=== PATIENT | male | born 1990 | race Caucasian/White ===

== ENCOUNTER 2020-06-30 13:08 | Emergency (ER) | payer BC, SELFPAY ==
[2020-06-30 13:58] VITALS: BMI 44.1
[2020-06-30 14:00] VITALS: BP 154/93; PULSE 82; RESP 20; TEMP 36.8; O2SAT 98; BMI 44.1
--- NOTE | 2020-06-30 14:09 | HMH.EDUTC ---
[facility] [place] Clinical Impression: Viral syndrome Disposition: Home, Self-Care Condition on Discharge: Good Instructions: DI for Viral Syndrome, Preventing the Spread of Coronavirus Discharge Instructions Additional Instructions: Drink plenty of fluids. Take tylenol or ibuprofen for pain or fever. Take the medications as directed. Follow up with your regular doctor. GO TO THE ER FOR ANY WORSENING SYMPTOMS FOLLOW THE DIRECTIONS ON THE COVID-19 HAND OUT THAT WE GAVE YOU REGARDING SELF-ISOLATION UNTIL YOU KNOW YOUR COVID-19 RESULTS Prescriptions: Azithromycin [Z-Abraham 250mg Tab*] 250 mg PO UD DOSE PK #6 tab Transmission Status: Received by [id number] Referrals: PCP,No [Primary Care Provider] - Forms: Work/School Release Time of Disposition: 14:29 Medical Decision Making - Medical Records Medical records reviewed: No: I reviewed the patient's medical records. - Kush Inquiry Pt receiving controlled substance: No Vital Signs: 06/30/20 14:00 06/30/20 14:33 Temperature 98.2 F 98.2 F Temperature Source Oral Pulse Rate 82 Pulse Rate [Right Brachial] 82 Respiratory Rate 20 20 Blood Pressure 154/93 H Blood Pressure [Right Arm] 154/93 H Blood Pressure Mean [Right Arm] 113 Blood Pressure Source [Right Arm] Automatic Cuff Blood Pressure Position [Right Arm] Sitting 02 Sat by Pulse Oximetry 98 Oxygen Delivery Method Room Air - Lab Data Lab Results 06/30/20 13:59: Strep Scn Rapid Clinic Negative Orders (Tests/Meds): ORDERS Category Date Time Status Strep Screen Confirmation Stat Micro 06/30/20 13:59 Received [facility] [place] - General Stated complaint: COVID testing with symptoms Time Seen by Provider: 06/30/20 14:09 Mode of Arrival: Ambulatory Source of Information: Patient Limitations: No Limitations Description of Symptoms (Recalled from Triage Doc. by RN): PATIENT C/O HEADACHE, COUGH, SORE THROAT, FATIGUE, AND DECREASED SENSE OF SMELL SINCE TUESDAY HEENT Symptoms (Recalled from RN notes): Yes Resp Symptoms (Recalled from RN notes): Yes Skin Symptoms (Recalled from RN notes): No MS Symptoms (Recalled from RN notes): No Functional Status (Recalled from RN notes): WNL - History of Present Illness Provider Complaint: He c/o 3 days of body aches, feeling bad and having an altered sense of taste. He denies any known exposure to COVID-19, but he works at [employer] and he is around lots of coworkers. - Related Data Previous Rx's Medication Instructions Recorded oseltamivir 75 mg capsule 75 mg PO BID 5 Days #10 cap 12/15/19 Azithromycin [Z-Abraham 250mg Tab*] 250 mg PO UD DOSE PK #6 tab 06/30/20 Allergies Allergy/AdvReac Type Severity Reaction Status Date / Time No Known Allergies Allergy Verified 12/15/19 15:53 - Worker's Comp Is this a Worker's Comp case?: No [facility] History - Hepatitis A Screen Drug use history?: No High risk sexual behaviors?: No History of sexually transmitted infection?: No Currently employed?: No Childcare worker?: No Do you have indoor plumbing?: Yes Do you have electricity?: Yes Attestation statement:: This patient has been screened for Hepatitis A risk factors. I have reviewed the patient's past medical history: Yes Other Surgeries: Yes: No Previous Surgery - Social History Smoking Status: Never smoker Alcohol Intake: never Alcohol Intake Frequency:: holidays/special occasions only Occupational Status: other ROS Obtained: Yes All systems reviewed & no additional complaints - Constitutional Constitutional: Reports chills, Denies fever(s), Reports poor appetite, Reports malaise - Eyes Eyes: Denies eye discharge - ENT Ears, Nose, Mouth, and Throat: Reports as per HPI Physical Exam - General General appearance: alert, in no apparent distress - Head Head exam: atraumatic, normocephalic, normal inspection - Eye Eye exam: Present: normal appearance, PERRL, EOMI - ENT ENT exam: Present: nor
[2020-06-30 14:33] VITALS: BP 154/93; PULSE 82; RESP 20; TEMP 36.8; O2SAT 98
[2020-06-30 19:19] LABS: UTC Strep Screen (Rapid) Negative (Negative)
== END 2020-06-30 14:36 | disposition home or self-care (01) ==
PROVIDERS: Emergency Provider Nurse Practitioner Family
DX: Z20.828 Contact with and (suspected) exposure to other viral communicable diseases (principal); R05 Cough; R51 Headache
CPT/HCPCS: 87880; 99202; U0003

== ENCOUNTER 2020-07-02 14:46 | Emergency (ER) | payer BC, SELFPAY ==
[2020-07-02 14:47] VITALS: BP 135/89; PULSE 107; RESP 21; TEMP 36.9; O2SAT 100; BMI 43.5
--- NOTE | 2020-07-02 15:25 | HMH.EDUTC ---
[facility] [place] Disposition Clinical Impression: Sinusitis Qualifiers: Sinusitis location: unspecified location Chronicity: unspecified Qualified Code(s): J32.9 - Chronic sinusitis, unspecified Disposition: Home, Self-Care Condition on Discharge: Good Instructions: Sinusitis, Sinus Headache, DI for Sinusitis, Preventing the Spread of Coronavirus Discharge Instructions Additional Instructions: *Monitor Temp, Over the counter Motrin or Tylenol as directed/as needed Tylenol every 4 hours and Motrin every 6 hours (as long as your family doctor has told you that you can take it) for fever or pain. and straight to ER if unable to lower temp less than 101.0 after medication given *Warm salt water gargles may help to soothe the throat *Throat Lozenges *Warm fluids like tea with honey may help to soothe the throat *Sleep elevated *Humidifier/Vaporizer *Flonase 2 spray in each nostril daily to help with nasal congestion, sinus an ear pressure/inflammation Lots of Fluids Sleep elevated Humidifer/vaporizer You was tested for COVID and given a handout make sure that you follow those instructions carefull to keep from spreading COVID 19 Your throat swab was sent for culture. Those results are typically sent to your primary care. Be sure to follow up in 2-3 days with your family doctor/primary care physician if no improvement so they can review those result and treat if necessary. If you don?t have a primary care doctor, I recommend you get one but in the mean time, you will have to return to a walk in clinic Follow up IMMEDIATELY for new or worsening symptoms or no Noticeable improvement over the next 48-72 hours. 911 for difficulty breathing or swallowing Prescriptions: Fluticasone Propionate [Flonase 50mcg nasal spray 16gm] 1 - 2 spr NS DAILY #1 bottle Transmission Status: Pending to [id number] Referrals: PCP,No [Primary Care Provider] - As needed Forms: Work/School Release Time of Disposition: 15:34 Medical Decision Making - Kush Inquiry Pt receiving controlled substance: No Kush was queried for this patient: No Vital Signs: 07/02/20 14:47 Temperature 98.4 F Temperature Source Oral Pulse Rate [Right] 107 H Respiratory Rate 21 Blood Pressure [Right Arm] 135/89 Blood Pressure Mean [Right Arm] 104 02 Sat by Pulse Oximetry 100 - Lab Data Lab results reviewed: Yes: I reviewed the patient's lab results. Orders (Tests/Meds): ORDERS Category Date Time Status Coronavirus 19 Swab (OUTPT) Routine Lab 07/02/20 15:13 Received [facility] [place] HPI - General Stated complaint: AZUL, sore throat Time Seen by Provider: 07/02/20 15:25 Mode of Arrival: Ambulatory Limitations: No Limitations Description of Symptoms (Recalled from Triage Doc. by RN): States he was here tuesday for cough, fever, cogestion, sore throat and is back today because he is not any better. States he tested negative for covid and strep. HEENT Symptoms (Recalled from RN notes): Yes Resp Symptoms (Recalled from RN notes): Yes Skin Symptoms (Recalled from RN notes): No MS Symptoms (Recalled from RN notes): No Functional Status (Recalled from RN notes): na - History of Present Illness Provider Complaint: Patient states that he was seen in the clinic on Tuesday and was tested for COVID and strep and they was negative but he is still having sinus pressure and nasal congestion States that he has been taking his zpack but still having the pressure in his sinuses and they wouldnt let him return to work so he came back in to get rechecked - Related Data Previous Rx's Medication Instructions Recorded oseltamivir 75 mg capsule 75 mg PO BID 5 Days #10 cap 12/15/19 Azithromycin [Z-Abraham 250mg Tab*] 250 mg PO UD DOSE PK #6 tab 06/30/20 Fluticasone Propionate [Flonase 1 - 2 spr NS DAILY #1 bottle 07/02/20 50mcg nasal spray 16gm] Allergies Allergy/AdvReac Type Severity Reaction Status Date / Time No Known Allergies Allergy Verified 12/15/19 15:53 -
[2020-07-02 15:31] LABS: UTC Influenza A Antigen Negative (Negative); UTC Influenza B Antigen Negative (Negative)
[2020-07-02 15:43] VITALS: BP 125/65; PULSE 100; RESP 20; TEMP 37.2; O2SAT 100
[2020-07-02 19:15] LABS: UTC Strep Screen (Rapid) Negative (Negative)
== END 2020-07-02 15:43 | disposition home or self-care (01) ==
PROVIDERS: Emergency Provider Nurse Practitioner
DX: J32.9 Chronic sinusitis, unspecified (principal)
CPT/HCPCS: 87804; 87880; 96372; 99202; U0003

== ENCOUNTER 2020-12-06 18:02 | Emergency (ER) | payer BC, SELFPAY ==
[2020-12-06 18:10] VITALS: BP 121/85; PULSE 102; RESP 14; TEMP 36.8; O2SAT 97; BMI 43.5
--- NOTE | 2020-12-06 18:42 | HMH.EDUTC ---
[facility] [place]ression: Exposure to COVID-19 virus Disposition: Home, Self-Care Condition on Discharge: Good Instructions: DI for COVID-19 (Suspected or Confirmed ), Preventing the Spread of Coronavirus Discharge Instructions Additional Instructions: Drink plenty of fluids. Take tylenol for pain or fever. Return if you begin to have difficulty breathing. Follow up with your regular doctor. GO TO THE ER FOR ANY WORSENING SYMPTOMS Referrals: PCP,No [Primary Care Provider] - Time of Disposition: 19:02 Medical Decision Making - Medical Records Medical records reviewed: No: I reviewed the patient's medical records. - Kush Inquiry Pt receiving controlled substance: No Vital Signs: 12/06/20 18:10 12/06/20 19:01 Temperature 98.2 F 98.2 F Temperature Source Oral Pulse Rate 102 H Pulse Rate [Right Brachial] 102 H Respiratory Rate 14 14 Blood Pressure 121/85 Blood Pressure [Right Arm] 121/85 Blood Pressure Mean [Right Arm] 97 Blood Pressure Source [Right Arm] Automatic Cuff Blood Pressure Position [Right Arm] Sitting 02 Sat by Pulse Oximetry 97 Oxygen Delivery Method Room Air [facility] [place] - General Stated complaint: covid test Time Seen by Provider: 12/06/20 18:43 - History of Present Illness Provider Complaint: He is here to have a covid test. His has tested positive but never developed symptoms. He has never tested positive or developed symptoms. - Related Data Previous Rx's Medication Instructions Recorded oseltamivir 75 mg capsule 75 mg PO BID 5 Days #10 cap 12/15/19 Azithromycin [Z-Abraham 250mg Tab*] 250 mg PO UD DOSE PK #6 tab 06/30/20 Fluticasone Propionate [Flonase 1 - 2 spr NS DAILY #1 bottle 07/02/20 50mcg nasal spray 16gm] Allergies Allergy/AdvReac Type Severity Reaction Status Date / Time No Known Allergies Allergy Verified 12/15/19 15:53 [facility] History - Hepatitis A Screen Attestation statement:: This patient has been screened for Hepatitis A risk factors. I have reviewed the patient's past medical history: Yes Other Surgeries: Yes: No Previous Surgery - Social History Smoking Status: Never smoker Alcohol Intake: never Alcohol Intake Frequency:: holidays/special occasions only Occupational Status: other ROS Obtained: Yes All systems reviewed & no additional complaints - Constitutional Constitutional: Reports system reviewed and no additional complaints, except as docu - Eyes Eyes: Reports system reviewed and no additional complaints, except as docu - ENT Ears, Nose, Mouth, and Throat: Reports system reviewed and no additional complaints, except as docu - Cardiovascular Cardiovascular: Reports system reviewed and no additional complaints, except as docu - Respiratory Respiratory: Reports system reviewed and no additional complaints, except as docu - Gastrointestinal Gastrointestingal: Reports: system reviewed and no additional complaints, except as docu Physical Exam - General General appearance: alert, in no apparent distress - Head Head exam: atraumatic, normocephalic, normal inspection - Eye Eye exam: Present: normal appearance, PERRL, EOMI - ENT ENT exam: Present: normal exam, normal oropharynx, mucous membranes moist, TM's normal bilaterally, normal external ear exam - Neck Neck exam: Present: normal inspection, full ROM, trachea midline. Absent: meningismus, lymphadenopathy - Chest Chest inspection: Present: normal inspection, symmetric chest wall rise. Absent: tenderness - Respiratory Respiratory exam: Present: normal lung sounds bilaterally. Absent: respiratory distress - Cardiovascular Cardiovascular exam: Present: regular rate, normal rhythm. Absent: JVD - Abdominal Exam Abdominal exam: Present: soft, normal bowel sounds. Absent: distention, tenderness, guarding - Extremities Exam Extremities exam: Present: normal inspection, full ROM, normal capillary refill. Absent: calf ten
[2020-12-06 19:01] VITALS: BP 121/85; PULSE 102; RESP 14; TEMP 36.8; O2SAT 97
== END 2020-12-06 19:03 | disposition home or self-care (01) ==
PROVIDERS: Emergency Provider Nurse Practitioner Family
DX: Z20.822 Contact with and (suspected) exposure to COVID-19 (principal)
CPT/HCPCS: 99202; G0463; U0003

== ENCOUNTER 2021-02-18 16:23 | Emergency (ER) | payer BC, SELFPAY ==
[2021-02-18 16:23] VITALS: BP 139/92; PULSE 89; RESP 16; O2SAT 100; BMI 42.7
--- NOTE | 2021-02-18 16:49 | HMH.EDUTC ---
[facility] Disposition Clinical Impression: Sciatica Qualifiers: Laterality: left Qualified Code(s): M54.32 - Sciatica, left side Low back pain Qualifiers: Chronicity: acute Back pain laterality: left Sciatica presence: with sciatica Sciatica laterality: sciatica of left side Qualified Code(s): M54.42 - Lumbago with sciatica, left side Disposition: Home, Self-Care Condition on Discharge: Good Instructions: DI for Low Back Pain, Low Back Pain Additional Instructions: Go home and rest. It would be best if you rested tomorrow too. No heavy lifting. No twisting. Take the oral medications as directed. The muscle relaxer (robaxin) will make you drowsy, so don't drive or operate heavy machinery after taking it. Don't start the oral steroids (medrol dose pack) until tomorrow, since you had the shots in here today. Follow up with your regular doctor. GO TO THE ER FOR ANY WORSENING SYMPTOMS OR CONCERN, ESPECIALLY BOWEL OR BLADDER ISSUES, SADDLE AREA NUMBNESS, FEVER, ETC While you are on the steroids, don't take the ibuprofen unless you really need it. It will be doing a similar thing as the steroids, so doubling up will probably not help much. Prescriptions: Ibuprofen [Ibuprofen 800mg Tablet] 800 mg PO Q8HP PRN #30 tab PRN Reason: Moderate Pain Transmission Status: Received by [facility] methylPREDNISolone [Medrol] 4 mg PO DIRECTED 6 Days #21 tab.ds.pk Transmission Status: Received by [facility] methocarbamoL [Robaxin 750mg Tab] 750 mg PO BIDP PRN #30 tab PRN Reason: Muscle Spasm Transmission Status: Received by [facility] Referrals: PCP,No [Primary Care Provider] - Time of Disposition: 17:19 Medical Decision Making - Medical Records Medical records reviewed: No: I reviewed the patient's medical records. - Kush Inquiry Pt receiving controlled substance: No Vital Signs: 02/18/21 16:23 02/18/21 17:27 Temperature 98.2 F Temperature Source Oral Pulse Rate 84 Pulse Rate [Right] 89 Respiratory Rate 16 16 Blood Pressure 132/70 Blood Pressure [Right Arm] 139/92 H Blood Pressure Mean [Right Arm] 107 Blood Pressure Source Automatic Cuff Blood Pressure Source [Right Arm] Automatic Cuff Blood Pressure Position Sitting 02 Sat by Pulse Oximetry 100 Oxygen Delivery Method Room Air Room Air Orders (Tests/Meds): ED MEDICATIONS Discontinued Medications Generic Name Dose Route Start Last Admin Trade Name Cris PRN Reason Stop Dose Admin Ketorolac Tromethamine 60 mg 02/18/21 16:55 02/18/21 17:06 Ketorolac 60mg/2ml Vial IM 02/18/21 16:56 60 mg ONCE ONE Administration Methylprednisolone Sodium Succinate 125 mg 02/18/21 16:55 02/18/21 17:07 Methylprednisolone Sod Succ 125mg Vial IM 02/18/21 16:56 125 mg ONCE ONE Administration [facility] HPI - General Stated complaint: back pain Time Seen by Provider: 02/18/21 16:49 Mode of Arrival: Ambulatory Source of Information: Patient Limitations: No Limitations Description of Symptoms (Recalled from Triage Doc. by RN): pt c/o pain in lower back going down into the left leg HEENT Symptoms (Recalled from RN notes): No Resp Symptoms (Recalled from RN notes): No Skin Symptoms (Recalled from RN notes): No MS Symptoms (Recalled from RN notes): Yes Functional Status (Recalled from RN notes): na - History of Present Illness Provider Complaint: He c/o low back pain that radiates down his left leg. His pain began about 4 days ago. He denies any known injury. He denies any bowel or bladder issues. He denies any saddle area numbness. - Related Data Previous Rx's Medication Instructions Recorded oseltamivir 75 mg capsule 75 mg PO BID 5 Days #10 cap 12/15/19 Azithromycin [Z-Abraham 250mg Tab*] 250 mg PO UD DOSE PK #6 tab 06/30/20 Fluticasone Propionate [Flonase 1 - 2 spr NS DAILY #1 bottle 07/02/20 50mcg nasal spray 16gm] Ibuprofen [Ibuprofen 800mg 800 mg PO Q8HP PRN #30 tab 02/18/21 Tablet
[2021-02-18 17:27] VITALS: BP 132/70; PULSE 84; RESP 16; TEMP 36.8; O2SAT 98
== END 2021-02-18 17:28 | disposition home or self-care (01) ==
PROVIDERS: Emergency Provider Nurse Practitioner Family
DX: M54.42 Lumbago with sciatica, left side (principal)
CPT/HCPCS: 96372; 99202; G0463

== ENCOUNTER 2021-02-25 13:23 | Emergency (ER) | payer BC, SELFPAY ==
[2021-02-25 13:30] VITALS: BP 148/99; PULSE 97; RESP 20; TEMP 37.1; O2SAT 98; BMI 41.5
--- NOTE | 2021-02-25 13:45 | HMH.EDUTC ---
[facility] [place] Dis[place] Clinical Impression: Nausea vomiting and diarrhea Disposition: Home, Self-Care Condition on Discharge: Good Instructions: Diarrhea, Nausea and Vomiting-Adult, DI for COVID-19 (Suspected or Confirmed ) Additional Instructions: Drink extra fluids with and between meals. If you have difficulty drinking, try very small amounts of water or suck on ice chips. ? Avoid fruit juices, as these do not replace minerals and can actually increase diarrhea. ? Children and adults can use sports drinks to replenish electrolytes. Younger children and infants should use products formulated for children, like oral rehydration solutions. ? Eat food in small amounts and let your stomach recover. ? Get lots of rest. You may feel tired or weak. ? No greasy or fried foods for the next 24-48 hours BRAT diet Bananas Rice Apples and [place] ? Make sure to drink plenty of liquids ? Return if needed ? Straight to ER if any life threatening symptoms ? Zofran as prescribed ? You was given an outpatient order for diarrhea panel, please collect specimen and bring back to outpatient lab then call back to the [facility] or follow up with family doctor for results ? Follow up with family doctor in the next 48-72 hours if no improvement or any worsening of symptoms You were tested for today for COVID19 your test result should be back in the next 24-48 hours, you may call to the [facility] to see if your test results are back in the next 48 hours [phone] [facility] hours are 9am-9pm You was given a handout with instructions for Self Quarantine and Self isolation for while you wait on test results and what to do if they are positive If you are positive the Health Dept will be contacting you also Prescriptions: Ondansetron [Zofran 4mg ODT] 4 mg PO TIDP PRN #9 tab PRN Reason: Vomiting Transmission Status: Received by [facility] Referrals: PCP,No [Primary Care Provider] - As needed Forms: Work/School Release Time of Disposition: 13:57 Medical Decision Making - Kush Inquiry Pt receiving controlled substance: No Kush was queried for this patient: No Vital Signs: 02/25/21 13:30 Temperature 98.8 F Temperature Source Oral Pulse Rate [Left Brachial] 97 H Respiratory Rate 20 Blood Pressure [Left Arm] 148/99 H Blood Pressure Mean [Left Arm] 115 Blood Pressure Source [Left Arm] Automatic Cuff Blood Pressure Position [Left Arm] Sitting 02 Sat by Pulse Oximetry 98 Oxygen Delivery Method Room Air - Lab Data Lab results reviewed: Yes: I reviewed the patient's lab results. Orders (Tests/Meds): ED MEDICATIONS Discontinued Medications Generic Name Dose Route Start Last Admin Trade Name Cris PRN Reason Stop Dose Admin Ondansetron HCl 4 mg 02/25/21 13:48 02/25/21 13:50 Ondansetron 4mg Odt SL 02/25/21 13:49 4 mg ONCE ONE Administration ORDERS Category Date Time Status Covid-19 Nasal PCR ([facility]) Routine Lab 02/25/21 13:35 Received [facility] [place] HPI - General Stated complaint: vomiting,diarrhea,headache Time Seen by Provider: 02/25/21 13:45 Mode of Arrival: Ambulatory Source of Information: Patient Limitations: No Limitations Description of Symptoms (Recalled from Triage Doc. by RN): PATIENT C/O NAUSEA, DIARRHEA, AND HEADACHE SINCE LAST NIGHT. ALSO C/O BILATERAL FLANK PAIN X APPROX 1 WEEK. NO KNOWN SICK CONTACTS. REQUESTING COVID TEST HEENT Symptoms (Recalled from RN notes): No Resp Symptoms (Recalled from RN notes): No Skin Symptoms (Recalled from RN notes): No MS Symptoms (Recalled from RN notes): No Functional Status (Recalled from RN notes): WNL - History of Present Illness Provider Complaint: Patient states that last night he started having some nausea, vomiting and diarrhea and had a little headache State that give him some left over Zofran and it helped with his nausea and vomiting States that also wanted to get his urine checked State that he was seen and treated last week for low back strain and state that he has
[2021-02-25 14:13] VITALS: BP 148/99; PULSE 97; RESP 20; TEMP 37.1; O2SAT 98
[2021-02-25 14:24] LABS: Apearance,Urine Clear (Clear); Color,Urine Yellow (Yellow); Glucose,Urine (UA) Negative (Negative); Protein,Urine Negative (Negative)
[2021-02-25 14:25] LABS: Bilirubin,Urine Negative (Negative); Blood, Urine Negative (Negative); Ketones,Urine Negative (Negative); UTC Leukocyte Esterase,Urine Negative (Negative); UTC Nitrate,Urine Negative (Negative); Urobilinogen,Urine 0.2 EU/dl (0.2)
== END 2021-02-25 14:15 | disposition home or self-care (01) ==
PROVIDERS: Emergency Provider Nurse Practitioner
DX: Z20.822 Contact with and (suspected) exposure to COVID-19 (principal); R11.2 Nausea with vomiting, unspecified; R19.7 Diarrhea, unspecified
CPT/HCPCS: 81003; 99202; G0463; U0003

== ENCOUNTER 2021-07-05 18:49 | Emergency (ER) | payer BC, SELFPAY ==
[2021-07-05 19:07] VITALS: BP 152/80; PULSE 83; RESP 14; TEMP 37.1; O2SAT 100; BMI 42.2
--- NOTE | 2021-07-05 19:21 | HMH.EDUTC ---
[facility] [place] Disposition Clinical Impression: Viral syndrome, Exposure to COVID-19 virus Disposition: Home, Self-Care Condition on Discharge: Good Instructions: DI for Viral Syndrome, DI for COVID-19 (Suspected or Confirmed ), Preventing the Spread of Coronavirus Discharge Instructions Additional Instructions: Drink plenty of fluids. Take tylenol for pain or fever. Return if you begin to have difficulty breathing. Follow up with your regular doctor. GO TO THE ER FOR ANY WORSENING SYMPTOMS Quarantine until you know the results of your covid-19 test. If it is positive, the health department should call you and give you further instructions about your length of Quarantine and other thing. Prescriptions: Ondansetron [Zofran 4mg ODT] 4 mg PO Q8HP PRN #20 tab.rapdis PRN Reason: Nausea Transmission Status: Received by [facility] Benzonatate [Tessalon Perle 100mg Cap] 100 mg PO TIDP PRN #30 cap PRN Reason: Cough Transmission Status: Received by [facility] Referrals: Provider,Referral, [Primary Care Provider] - Time of Disposition: 19:27 Medical Decision Making - Medical Records Medical records reviewed: No: I reviewed the patient's medical records. - Kush Inquiry Pt receiving controlled substance: No Vital Signs: 07/05/21 19:07 07/05/21 19:36 Temperature 98.7 F 98 F Temperature Source Oral Pulse Rate 82 Pulse Rate [Left] 83 Respiratory Rate 14 16 Blood Pressure 149/84 H Blood Pressure [Right Arm] 152/80 H Blood Pressure Mean [Right Arm] 104 02 Sat by Pulse Oximetry 100 Orders (Tests/Meds): ORDERS Category Date Time Status Covid-19 Nasal PCR ([facility]) Routine Lab 07/05/21 19:[address] [facility] [place] HPI - General Stated complaint: covid test Time Seen by Provider: 07/05/21 19:22 Mode of Arrival: Ambulatory Source of Information: Patient Limitations: No Limitations Description of Symptoms (Recalled from Triage Doc. 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 PT C/O DRY COUGH, FATIGUE, SORE THROAT, BODY ACHES AND SOA. HEENT Symptoms (Recalled from RN notes): Yes (SORE THROAT) Resp Symptoms (Recalled from RN notes): Yes (DRY COUGH) Skin Symptoms (Recalled from RN notes): No MS Symptoms (Recalled from RN notes): No Functional Status (Recalled from RN notes): FATIGUE AND BODY ACHES - History of Present Illness Provider Complaint: He was exposed to covid-19 at his work last week. Since yesterday he has began to feel bad. He states that he has a cough, body aches, sore throat, and diarrhea. - Related Data Previous Rx's Medication Instructions Recorded Ondansetron [Zofran 4mg ODT] 4 mg PO TIDP PRN #9 tab 02/25/21 Benzonatate [Tessalon Perle 100mg 100 mg PO TIDP PRN #30 cap 07/05/21 Cap] Ondansetron [Zofran 4mg ODT] 4 mg PO Q8HP PRN #20 tab.rapdis 07/05/21 Allergies Allergy/AdvReac Type Severity Reaction Status Date / Time No Known Allergies Allergy Verified 12/15/19 15:53 - Worker's Comp Is this a Worker's Comp case?: No [facility] History - Hepatitis A Screen Drug use history?: No High risk sexual behaviors?: No History of sexually transmitted infection?: No Currently employed?: No Childcare worker?: No Do you have indoor plumbing?: Yes Do you have electricity?: Yes Attestation statement:: This patient has been screened for Hepatitis A risk factors. I have reviewed the patient's past medical history: Yes Other Surgeries: Yes: No Previous Surgery - Social History Smoking Status: Never smoker Alcohol Intake: never Alcohol Intake Frequency:: holidays/special occasions only Occupational Status: other ROS Obtained: Yes All systems reviewed & no additional complaints - Constitutional Constitutional: Reports system reviewed and no additional complaints, except as docu - Eyes Eyes: Reports system reviewed and no additional complaints, except as docu - ENT Ears,
[2021-07-05 19:36] VITALS: BP 149/84; PULSE 82; RESP 16; TEMP 36.6
--- NOTE | 2021-07-06 16:12 | PC.NURSE ---
PATIENT NOTIFIED OF POSITIVE COVID TEST AT THIS TIME
== END 2021-07-05 19:51 | disposition home or self-care (01) ==
PROVIDERS: Emergency Provider Nurse Practitioner Family
DX: U07.1 COVID-19 (principal)
CPT/HCPCS: 99202; G0463; U0003

== ENCOUNTER 2021-07-27 17:06 | Emergency (ER) | payer BC, SELFPAY ==
[2021-07-27 18:00] VITALS: BP 146/73; PULSE 85; RESP 20; TEMP 36.9; O2SAT 99; BMI 39.5
[2021-07-27 18:24] VITALS: BP 146/73; PULSE 85; RESP 20; TEMP 36.9; O2SAT 99
[2021-07-27 18:24] LABS: UTC Strep Screen (Rapid) Negative (Negative)
--- NOTE | 2021-07-27 18:48 | HMH.EDUTC ---
[facility] [place] Disposition Clinical Impression: URI (upper respiratory infection) Qualifiers: URI type: unspecified URI Qualified Code(s): J06.9 - Acute upper respiratory infection, unspecified Disposition: Home, Self-Care Condition on Discharge: Good Instructions: Sore Throat, DI for Sinusitis, Azithromycin Additional Instructions: *Monitor Temp, Over the counter Motrin or Tylenol as directed/as needed Tylenol every 4 hours and Motrin every 6 hours (as long as your family doctor has told you that you can take it) for fever or pain. and straight to ER if unable to lower temp less than 101.0 after medication given *Warm salt water gargles may help to soothe the throat *Throat Lozenges *Warm fluids like tea with honey may help to soothe the throat *Sleep elevated *Humidifier/Vaporizer Your throat swab was sent for culture. Those results are typically sent to your primary care. Be sure to follow up in 2-3 days with your family doctor/primary care physician if no improvement so they can review those result and treat if necessary. If you don?t have a primary care doctor, I recommend you get one but in the mean time, you will have to return to a walk in clinic Follow up IMMEDIATELY for new or worsening symptoms or no Noticeable improvement over the next 48-72 hours. 911 for difficulty breathing or swallowing Prescriptions: guaiFENesin [Mucinex 600mg tablet] 1 - 2 tab PO Q12HP PRN #20 tab PRN Reason: Cough Transmission Status[facility] methylPREDNISolone [Medrol 4mg tab] 4 mg PO DIRECTED #21 tab Transmission Status: [facility] Azithromycin [Z-Abraham 250mg Tab] 250 mg PO DIRECTED #6 tab Transmission Status: Pending to [facility] Referrals: Provider,Referral, MD [Primary Care Provider] - As needed Forms: Work/School Release Time of Disposition: 18:52 Medical Decision Making - Kush Inquiry Pt receiving controlled substance: No Kush was queried for this patient: No Vital Signs: 07/27/21 18:00 07/27/21 18:24 Temperature 98.5 F 98.5 F Temperature Source Oral Pulse Rate 85 Pulse Rate [Right Brachial] 85 Respiratory Rate 20 20 Blood Pressure 146/73 H Blood Pressure [Right Arm] 146/73 H Blood Pressure Mean [Right Arm] 97 Blood Pressure Source [Right Arm] Automatic Cuff Blood Pressure Position [Right Arm] Sitting 02 Sat by Pulse Oximetry 99 Oxygen Delivery Method Room Air - Lab Data Lab results reviewed: Yes: I reviewed the patient's lab results. Lab Results 07/27/21 18:18: Strep Scn Rapid Clinic Negative Orders (Tests/Meds): ORDERS Category Date Time Status Strep Screen Confirmation Stat Micro 07/27/21 18:18 Received [facility] [place] HPI - General Stated complaint: covid test Time Seen by Provider: 07/27/21 18:48 Mode of Arrival: Ambulatory Source of Information: Patient Limitations: No Limitations Description of Symptoms (Recalled from Triage Doc. by RN): PATIENT C/O SORE THROAT, CONGESTION, BODY ACHES, FEVER, FATIGUE AND DIARRHEA. TESTED POSITIVE FOR COVID ON 07/04 HEENT Symptoms (Recalled from RN notes): Yes Resp Symptoms (Recalled from RN notes): No Skin Symptoms (Recalled from RN notes): No MS Symptoms (Recalled from RN notes): No Functional Status (Recalled from RN notes): WNL - History of Present Illness Provider Complaint: Patient states that he recenlty had COVID states that he has been having sore throat, sinus congestion and pressure, cough and feeling achy all over States that he came in today when he wasnt feeling any better - Related Data Previous Rx's Medication Instructions Recorded Ondansetron [Zofran 4mg ODT] 4 mg PO TIDP PRN #9 tab 02/25/21 Benzonatate [Tessalon Perle 100mg 100 mg PO TIDP PRN #30 cap 07/05/21 Cap] Ondansetron [Zofran 4mg ODT] 4 mg PO Q8HP PRN #20 tab.rapdis 07/05/21 Azithromycin [Z-Abraham 250mg Tab] 250 mg PO DIRECTED #6 tab 07/27/21 guaiFENesin [Mucinex 600mg tablet] 1 - 2
== END 2021-07-27 19:06 | disposition home or self-care (01) ==
PROVIDERS: Emergency Provider Nurse Practitioner
DX: J06.9 Acute upper respiratory infection, unspecified (principal)
CPT/HCPCS: 87880; 99202; G0463

== ENCOUNTER → 2021-12-07 13:16 | Outpatient (CLI) | payer OTHER, SELFPAY | PROVIDERS: Visit Provider Nurse Practitioner | DX: U07.1 COVID-19 (principal) | CPT/HCPCS: C9803; U0003; U0005 ==

== ENCOUNTER → 2022-06-29 05:39 | Outpatient (CLI) | payer BC, SELFPAY | PROVIDERS: Visit Provider Emergency Medicine | DX: U07.1 COVID-19 (principal); R51.9 Headache, unspecified; R05.9 Cough, unspecified | CPT/HCPCS: C9803; U0003; U0005 ==

== ENCOUNTER 2022-11-28 16:46 | Emergency (ER) | payer BC, SELFPAY ==
--- NOTE | 2022-11-28 18:01 | XR_ITS ---
PROCEDURE INFORMATION: Exam: XR Left Ankle Exam date and time: 11/28/2022 6:01 PM Age: 32 years old Clinical indication: Swelling, leg or foot; Additional info: Pain and swelling TECHNIQUE: Imaging protocol: Radiologic exam of the Left ankle. Views: 3 or more views. COMPARISON: No relevant prior studies available. FINDINGS: Bones/joints: Normal. Soft tissues: Normal. IMPRESSION: No acute findings.
--- NOTE | 2022-11-28 18:01 | XR_ITS ---
PROCEDURE INFORMATION: Exam: XR Left Foot Exam date and time: 11/28/2022 6:03 PM Age: 32 years old Clinical indication: Swelling, leg or foot; Additional info: Pain and swelling TECHNIQUE: Imaging protocol: Radiologic exam of the Left foot. Views: 3 or more views. COMPARISON: CR XR ANKLE LT MIN 3V 11/28/2022 6:01 PM FINDINGS: Bones/joints: Normal. Soft tissues: Normal. IMPRESSION: No acute findings.
[2022-11-28 18:05] VITALS: BP 182/117; PULSE 100; RESP 21; TEMP 36.7; O2SAT 100; BMI 40.6
[2022-11-28 18:20] VITALS: BP 182/117; PULSE 100; RESP 21; TEMP 36.7; O2SAT 100; BMI 40.6
--- NOTE | 2022-11-28 19:05 | EXP.UTC ---
Discharge Plan Disposition Patient Disposition: Home, Self-Care Condition: Good Prescriptions Prescriptions: New indomethacin 50 mg capsule 50 mg PO TID PRN (Reason: gout pain) Qty: 9 0RF Rx Instructions: Take until pain subsides administer with food or milk Referrals Follow up/Referrals: Provider,Referral, MD [Primary Care Provider] - See instructions Activity Restrictions/Add. Instructions Additional Instructions/Restrictions: Start Indomethacin tomorrow if you are still having pain and tenderness Follow up with your Family Doctor if pain continues Straight to ER if any life threatening symptoms Do not take any ibuprofen or Asprin with indomethacin Clinical Impressions Clinical Impression: Pseudogout of foot Qualifiers: Laterality: left Qualified Code(s): M11.279 - Other chondrocalcinosis, unspecified ankle and foot Stand Alone Forms Stand Alone Forms: Work/School Release Instructions Patient Instructions: DI for Pseudogout, Indomethacin Discharge ED Provider: Perla Kellogg [facility] [place] HPI General Stated complaint: LT foot red and swollen Mode of Arrival: Ambulatory Source of Information: Patient Limitations: No Limitations Time Seen by Provider: 11/28/22 19:05 Description of Symptoms (Recalled from Triage Doc. by RN): PATIENT C/O PAIN TO TOP OF LEFT FOOT AND ANKLE THAT STARTED LAST NIGHT. NO KNOWN INJURY. HEENT Symptoms (Recalled from RN notes): No Resp Symptoms (Recalled from RN notes): No Skin Symptoms (Recalled from RN notes): No MS Symptoms (Recalled from RN notes): Yes Functional Status (Recalled from RN notes): WNL History of Present Illness Provider Complaint: Patient states that he started having pain in the top of his left foot last night on the top of foot close to his ankle States that he does not recall doing anything to hurt it but just started hurting and sore to the touch States that this evening it was still hurting him so he came in to get it checked Denies injury States that he had something similar to this a couple years ago and had to get steriods but not sure what it was Related Data Previous Rx's Medication Instructions Recorded indomethacin 50 mg capsule 50 mg PO TID PRN gout pain #9 caps 11/28/22 Allergies Allergy/AdvReac Type Severity Reaction Status Date / Time No Known Allergies Allergy Verified 03/12/22 09:25 Worker's Comp Is this a Worker's Comp case?: No [facility] Disclaimer: The information contained in this section may have been updated after the patient was seen, as this information can be updated by other users. Medical History (Updated 11/28/22 @ 19:46 by Perla Kellogg APRN) No significant past medical history Social History (Updated 11/28/22 @ 18:32 by Carissa Ignacio RN) Smoking Status: Never smoker alcohol intake: never current occupational status: employed Travel in the last 8 weeks: None ROS Obtained: Yes All systems reviewed & no additional complaints except as documented and Yes Systems reviewed as appropriate & no additional complaints except as documented Constitutional Constitutional: Reports system reviewed and no additional complaints, except as documented, Reports as per HPI and Denies fever(s) ENT Ears, Nose, Mouth, and Throat: Reports system reviewed and no additional complaints, except as documented and Reports as per HPI Cardiovascular Cardiovascular: Reports system reviewed and no additional complaints, except as documented and Reports as per HPI Respiratory Respiratory: Reports system reviewed and no additional complaints, except as documented and Reports as per HPI Gastrointestinal Gastrointestingal: Reports system reviewed and no additional complaints, except as documented and as per HPI Musculoskeletal Musculoskeletal: Reports system reviewed and no additional complaints, except as documented and Reports as per HPI Comments: Pain in top of foot denies injury woke him up hurting Physical Exam General G
[2022-11-28 19:15] LABS: Uric Acid 8.3 mg/dl (3.5-8.5)
[2022-11-28 19:52] VITALS: BP 128/78; PULSE 100; RESP 21; TEMP 36.7; O2SAT 100
== END 2022-11-28 20:11 | disposition home or self-care (01) ==
PROVIDERS: Emergency Provider Nurse Practitioner
DX: M11.272 Other chondrocalcinosis, left ankle and foot (principal); M79.672 Pain in left foot
CPT/HCPCS: 73610; 73630; 84550; 96372; 99213; G0463

== ENCOUNTER 2023-01-13 19:11 | Emergency (ER) | payer BC, SELFPAY ==
[2023-01-13 19:46] VITALS: BP 165/93; PULSE 82; RESP 20; TEMP 36.7; O2SAT 98; BMI 42.3
--- NOTE | 2023-01-13 19:58 | EXP.UTC ---
Discharge Plan Disposition Patient Disposition: Home, Self-Care Condition: Good Prescriptions Prescriptions: No Action indomethacin 50 mg capsule 50 mg PO TID PRN (Reason: gout pain) Qty: 9 0RF Rx Instructions: Take until pain subsides administer with food or milk Referrals Follow up/Referrals: Aram Maradiaga MD [Primary Care Provider] - See instructions Activity Restrictions/Add. Instructions Additional Instructions/Restrictions: Follow up with Podiatry as scheduled tomorrow Return if needed Straight to ER if any life threatening symptoms Clinical Impressions Clinical Impression: Encounter for laboratory test Discharge ED Provider: Perla Kellogg [facility] [place] General Stated complaint: painful foot Mode of Arrival: Ambulatory Source of Information: Patient Limitations: No Limitations Time Seen by Provider: 01/13/23 19:58 Description of Symptoms (Recalled from Triage Doc. by RN): REQUESTING BLOOD URIC ACID TEST FOR PODIATRY APPOINTMENT IN MORNING HEENT Symptoms (Recalled from RN notes): No Resp Symptoms (Recalled from RN notes): No Skin Symptoms (Recalled from RN notes): No MS Symptoms (Recalled from RN notes): No Functional Status (Recalled from RN notes): WNL History of Present Illness Provider Complaint: Patient states that he is scheduled with Library Assistant tomorrow and they wanted him to have uric acid drawn before his appointment so he came in tonight requesting uric acid for his Library Assistant to view tomorrow Related Data Previous Rx's Medication Instructions Recorded indomethacin 50 mg capsule 50 mg PO TID PRN gout pain #9 caps 11/28/22 Allergies Allergy/AdvReac Type Severity Reaction Status Date / Time No Known Allergies Allergy Verified 03/12/22 09:25 Worker's Comp Is this a Worker's Comp case?: [facility] Disclaimer: The information contained in this section may have been updated after the patient was seen, as this information can be updated by other users. Medical History (Updated 01/13/23 @ 20:01 by Perla Kellogg APRN) No significant past medical history Social History (Updated 11/28/22 @ 18:32 by Carissa Ignacio RN) Smoking Status: Never smoker alcohol intake: never current occupational status: employed Travel in the last 8 weeks: None ROS Obtained: Yes All systems reviewed & no additional complaints except as documented and Yes Systems reviewed as appropriate & no additional complaints except as documented Constitutional Constitutional: Reports system reviewed and no additional complaints, except as documented and Reports as per HPI ENT Ears, Nose, Mouth, and Throat: Reports system reviewed and no additional complaints, except as documented and Reports as per HPI Cardiovascular Cardiovascular: Reports system reviewed and no additional complaints, except as documented and Reports as per HPI Respiratory Respiratory: Reports system reviewed and no additional complaints, except as documented and Reports as per HPI Gastrointestinal Gastrointestingal: Reports system reviewed and no additional complaints, except as documented and as per HPI Physical Exam General General appearance: alert and in no apparent distress Respiratory Respiratory exam: Present normal lung sounds bilaterally; Absent respiratory distress or wheezes Cardiovascular Cardiovascular exam: Present regular rate, normal rhythm and normal heart sounds Abdominal Exam Abdominal exam: Present soft and normal bowel sounds; Absent distention or tenderness Extremities Exam Extremities exam: Present normal inspection, full ROM and normal capillary refill; Absent tenderness or edema Neurological Exam Neurological exam: Present alert and normal gait Medical Decision Making Kush Inquiry Pt receiving controlled substance: No Kush was queried for this patient: No Vital Signs: 01/13/23 19:46 Temperature 98.1 F Temperature Source Oral Pulse Rate [Right Brachial] 82 Respiratory Rate 20 Blood
[2023-01-13 20:06] VITALS: BP 165/93; PULSE 82; RESP 20; TEMP 36.7; O2SAT 98
[2023-01-13 20:11] LABS: Uric Acid 8.3 mg/dl (3.5-8.5)
== END 2023-01-13 20:18 | disposition home or self-care (01) ==
PROVIDERS: Emergency Provider Nurse Practitioner; PCP Pediatrics
DX: M79.673 Pain in unspecified foot (principal)
CPT/HCPCS: 84550; 99212; G0463

== ENCOUNTER 2023-06-02 10:13 | Emergency (ER) | payer BC, SELFPAY ==
[2023-06-02 10:25] VITALS: BP 137/68; PULSE 68; RESP 18; TEMP 37; O2SAT 99; BMI 41.8
[2023-06-02 10:35] VITALS: BP 134/68; BP 149/68; PULSE 68; PULSE 79; PULSE 95
--- NOTE | 2023-06-02 10:42 | PC.NURSE ---
PATIENT SENT TO ER PER Bella SANTA APRN FOR FURTHER EVALUTION. REPORT GIVEN TO ALEX ROTHMAN BY Bella SANTA APRN. PATIENT AMBULATED TO ER WITH [facility] STAFF ASSIST
--- NOTE | 2023-06-02 10:42 | EXP.UTC ---
Discharge Plan Disposition Patient Disposition: Home, Self-Care Condition: Good Prescriptions Prescriptions: No Action No Known Home Medications Referrals Follow up/Referrals: Provider,Referral, MD [Primary Care Provider] - See instructions Clinical Impressions Clinical Impression: Palpitations Chest pain Qualifiers: Chest pain type: unspecified Qualified Code(s): R07.9 - Chest pain, unspecified Discharge ED Provider: Jones Courtney [facility] General Chief complaint: Chest Pain Stated complaint: soa Mode of Arrival: Ambulatory Source of Information: Patient Limitations: No Limitations Time Seen by Provider: 06/02/23 10:42 Description of Symptoms (Recalled from Triage Doc. by RN): PATIENT C/O DIZZINESS, SOA, FATIGUE, AND ELEVATED BLOOD PRESSURE THAT OCCURED WHILE HE WAS AT WORK TODAY HEENT Symptoms (Recalled from RN notes): Yes Resp Symptoms (Recalled from RN notes): Yes Skin Symptoms (Recalled from RN notes): No MS Symptoms (Recalled from RN notes): No Functional Status (Recalled from RN notes): WNL History of Present Illness Provider Complaint: Patient states that last night he was feeling dizzy and having pressure in his head so his check his blood pressure and it was elevated he took an asprin and laid down then when he got up this morning he was feeling ok so he went to work States that while at work he got dizzy and said he didnt feel right and started having pressure in his chest and feeling SOA and they had to call Medical for him States that they checked his vitals and did a EKG checked his blood sugar and it was 120 and told him that he needed to go to the ER and he drove here Related Data Home Medications Medication Instructions Recorded Confirmed No Known Home Medications 06/02/23 06/02/23 Allergies Allergy/AdvReac Type Severity Reaction Status Date / Time No Known Allergies Allergy Verified 03/12/22 09:25 Worker's Comp Is this a Worker's Comp case?: No [facility] Disclaimer: The information contained in this section may have been updated after the patient was seen, as this information can be updated by other users. Medical History No significant past medical history Social History Smoking Status: Never smoker alcohol intake: never current occupational status: employed Travel in the last 8 weeks: None ROS Obtained: Yes All systems reviewed & no additional complaints except as documented and Yes Systems reviewed as appropriate & no additional complaints except as documented Constitutional Constitutional: Reports system reviewed and no additional complaints, except as documented, Reports as per HPI, Reports fatigue and Reports headache(s) Eyes Eyes: Reports system reviewed and no additional complaints, except as documented and Reports as per HPI ENT Ears, Nose, Mouth, and Throat: Reports system reviewed and no additional complaints, except as documented, Reports as per HPI, Reports dizziness and Reports headache(s) Cardiovascular Cardiovascular: Reports system reviewed and no additional complaints, except as documented, Reports as per HPI, Reports chest pain (reports pressure like feeling), Reports lightheadedness and Reports palpitations (earlier today) Respiratory Respiratory: Reports system reviewed and no additional complaints, except as documented, Reports as per HPI and Reports shortness of breath Gastrointestinal Gastrointestingal: Reports system reviewed and no additional complaints, except as documented and as per HPI Genitourinary Male Genitourinary: Reports system reviewed and no additional complaints, except as documented and Reports as per HPI Neurologic Neurologic: Reports dizziness and Reports headache(s) Endocrine Endocrine: Reports fatigue and Reports palpitations (earlier today) Physical Exam General General appearance: alert and in no appare
--- NOTE | 2023-06-02 10:47 | ECG_ITS ---
APPROVED REPORT Exam: Resting ECG HR:72 bpm ECG Measurements Heart Rate 72 AXES AK 147 P 36 QRSd 90 QRS 24 QT 382 T 48 QTc 406 Conclusion SINUS RHYTHM NORMAL ECG UNCONFIRMED REPORT Electronically signed by : Lencho Jimenez MD 06/02/2023 21:34:17
[2023-06-02 10:55] VITALS: BP 143/78; PULSE 82; RESP 18; TEMP 37.1; O2SAT 97; BMI 42.0
--- NOTE | 2023-06-02 10:57 | XR_ITS ---
PROCEDURE INFORMATION: Exam: XR Chest Exam date and time: 06/02/2023 10:58 AM Age: 32 years old Clinical indication: Chest pressure; Patient HX: Chest pain, SOB, elevated BP TECHNIQUE: Imaging protocol: Radiologic exam of the chest. Views: 1 view. COMPARISON: No relevant prior studies available. FINDINGS: Lungs: Unremarkable. No consolidation. Pleural spaces: Unremarkable. No pleural effusion. No pneumothorax. Heart/Mediastinum: Unremarkable. No cardiomegaly. Bones/joints: Unremarkable. IMPRESSION: No acute findings.
--- NOTE | 2023-06-02 11:01 | PC.NURSE ---
portable xray at
[2023-06-02 11:05] LABS: Basophils # 0.1 K/mm3 (0-0.2); Basophils % 0.7 % (0.1-2.0); Eosinophils # 0.2 K/mm3 (0.0-0.4); Eosinophils % 2.6 % (0.1-12.0); Hematocrit 48.2 % (42.0-52.0); Hemoglobin 15.6 g/dL (14.1-18.0); Lymphocytes # 1.5 K/mm3 (0.7-4.5); Lymphocytes % 17.2 % (10-50); Mean Corpuscular HGB Conc 32.5 g/dL (31.8-35.4); Mean Corpuscular Hemoglobin 28.1 pg (27.0-31.2); Mean Corpuscular Volume 86.6 fl (80-94); Mean Platelet Volume 8.4 fl (7.4-10.4); Monocytes # 0.5 K/mm3 (0.1-1.0); Monocytes % 5.4 % (1.7-9.3); Neutrophils # 6.4 K/mm3 (1.8-7.8); Neutrophils % 74.1 % (37.0-80.0); Platelet Count 201 K/mm3 (142-424); Red Blood Count 5.56 M/mm3 (4.60-6.20); Red Cell Distribution Width 14.2 % (11.5-17.5); White Blood Count 8.6 K/mm3 (4.8-10.8)
[2023-06-02 11:15] LABS: Alanine Aminotransferase 47 U/L (12-78); Albumin Level 4.9 g/dl (3.5-5.0); Albumin/Globulin Ratio 1.8 (1.1-1.8); Alkaline Phosphatase 60 U/L (38-126); Anion Gap 11.8 mEq/L (5-15); Aspartate Amino Transferase 38 U/L (17-59); Bilirubin,Total 0.5 mg/dl (0.2-1.3); Blood Urea Nitrogen 13 mg/dl (9-20); Calcium 9.5 mg/dl (8.4-10.2); Carbon Dioxide 29 mmol/L (22.0-30.0); Chloride 106 mmol/L (98-107); Creatinine Clearance Estimated 127 mL/min (50-200); Estimated Glomerular Filt Rate 97 ml/min (>60); GFR (African American) 117 ML/MIN (>60); Globulin 2.8 g/dL (1.3-3.2); Glucose 96 mg/dl (74-100); Magnesium 2.2 mg/dl (1.6-2.3); Potassium 4.8 mmoL/L (3.5-5.1); Sodium 142 mmol/L (136-145); Total Protein,Serum 7.7 g/dl (6.3-8.2)
[2023-06-02 11:31] VITALS: BP 116/69; PULSE 66; O2SAT 98
[2023-06-02 11:31] LABS: T4 (Thyroxine) 9.8 ug/dl (5.53-11.0)
[2023-06-02 11:40] LABS: Troponin I < 0.01 ng/ml (0.00-0.034)
[2023-06-02 11:45] LABS: Thyroid Stimulating Hormone 0.81 uIU/mL (0.465-4.68)
[2023-06-02 12:00] VITALS: BP 122/61; PULSE 69; O2SAT 100
--- NOTE | 2023-06-02 12:30 | PC.NURSE ---
Rounded on patient; family at BS. No needs at this time. Call shi within reach.
--- NOTE | 2023-06-02 13:40 | HMH.EDGENADL ---
Discharge Plan Disposition Patient Disposition: Home, Self-Care Condition: Good Chief Complaint: Chest Pain Prescriptions Prescriptions: No Action No Known Home Medications Referrals Follow up/Referrals: Provider,Nilesh, [Primary Care Provider] - See instructions Clinical Impressions Clinical Impression: Palpitations Chest pain Qualifiers: Chest pain type: unspecified Qualified Code(s): R07.9 - Chest pain, unspecified Discharge ED Provider: Jones Courtney General Adult HPI General Chief complaint: Chest Pain Stated complaint: soa Time Seen by Provider: 06/02/23 10:42 Mode of Arrival: Ambulatory Source of Information: Patient Limitations: No Limitations Description of Symptoms (Recalled from ER Triage Doc. by RN): 32 M presents from our [facility] after he was sent to the ED from his work. Patient states he woke up feeling funny this morning, went to work, and while at work began havng chest discomfort. Patient denies cardiac history. He reports having labs drawn sometime last year and told he had some kind of autoimmune disorder, but never followed up. History of Present Illness HPI narrative: 32yo M presents the ER from [facility] after having chest discomfort at work. Denies any radiation. Reports mild shortness of breath. denies any cardiac history. Patient reports he did not feel well last night. Had elevated blood pressure. Denies family history of heart disease. Related Data Home Medications Medication Instructions Recorded Confirmed No Known Home Medications 06/02/23 06/02/23 Allergies Allergy/AdvReac Type Severity Reaction Status Date / Time No Known Allergies Allergy Verified 03/12/22 09:25 [facility] Disclaimer: The information contained in this section may have been updated after the patient was seen, as this information can be updated by other users. Medical History No significant past medical history Social History Smoking Status: Never smoker alcohol intake: never current occupational status: employed Travel in the last 8 weeks: None ROS Obtained: Yes Systems reviewed as appropriate & no additional complaints except as documented Physical Exam General General appearance: alert and in no apparent distress Head Head exam: atraumatic Eye Eye exam: Present normal appearance ENT ENT exam: Present normal oropharynx Neck Neck exam: Present normal inspection and trachea midline Chest Chest inspection: Present symmetric chest wall rise Respiratory Respiratory exam: Present normal lung sounds bilaterally; Absent respiratory distress Cardiovascular Cardiovascular exam: Present regular rate, normal rhythm and normal heart sounds Abdominal Exam Abdominal exam: Present soft and normal bowel sounds; Absent distention or tenderness Neurological Exam Neurological exam: Present alert and oriented X3 Psychiatric Psychiatric exam: Present normal affect Skin Skin exam: Present warm Medical Decision Making Medical Records Medical records reviewed: Yes I reviewed the patient's medical records. Kush Inquiry Pt receiving controlled substance: No Vital Signs: 06/02/23 10:25 06/02/23 10:35 06/02/23 10:55 Temperature 98.6 F 98.7 F Temperature Source Oral Oral Pulse Rate Pulse Rate [Orthostatic Lying Brachial] 68 Pulse Rate [Orthostatic Sitting Right Brachial] 79 Pulse Rate [Orthostatic Standing Right Brachial] 95 H Pulse Rate [Right Brachial] 68 82 Respiratory Rate 18 18 Blood Pressure Blood Pressure [Orthostatic Lying Right Arm] 134/68 Blood Pressure [Orthostatic Sitting Right Arm] 149/68 H Blood Pressure [Orthostatic Standing Right Arm] 134/68 Blood Pressure [Right Arm] 137/68 143/78 H Blood Pressure Mean Blood Pressure Mean [Right Arm] 91 99 Blood Pressure Source [Right Arm] Automatic Cuff Automatic Cuff Blood Pressure P
[2023-06-02 13:53] VITALS: BP 138/86; PULSE 84; RESP 18; TEMP 37; O2SAT 97
== END 2023-06-02 13:53 | disposition home or self-care (01) ==
LOC: UTC 10:24 → ER 10:43
PROVIDERS: Emergency Provider Family Medicine
DX: R07.9 Chest pain, unspecified (principal); R06.02 Shortness of breath
CPT/HCPCS: 71045; 80053; 83735; 84436; 84443; 84484; 85025; 93005; 99285

== ENCOUNTER 2023-07-14 10:15 | Emergency (ER) | payer BC, SELFPAY ==
[2023-07-14 10:25] VITALS: BP 133/80; PULSE 84; RESP 18; TEMP 36.8; O2SAT 96; BMI 40.6
--- NOTE | 2023-07-14 10:44 | EXP.UTC ---
Discharge Plan Disposition Patient Disposition: Home, Self-Care Condition: Good Prescriptions Prescriptions: New prednisone 5 mg tablets,dose pack See Rx Instructions .ROUTE .COMPLEX Qty: 21 0RF Rx Instructions: take as directed on package instructions Referrals Follow up/Referrals: Provider,Referral, MD [Primary Care Provider] - See instructions Activity Restrictions/Add. Instructions Additional Instructions/Restrictions: Oatmeal baths may help with drying of rash Calamine lotion may help with drying of rash Start Oral steriods tomorrow Follow up with your Family Doctor if no improvement Clinical Impressions Clinical Impression: Rash Instructions Patient Instructions: Poisonous Plants: [place], [place], and [place]: Beware the Oils, Poison [place], Poison [place], Poison [place], DI for Rash Discharge ED Provider: Perla Kellogg [facility] [place] General Stated complaint: rash on arms and legs Mode of Arrival: Ambulatory Source of Information: Patient Limitations: No Limitations Time Seen by Provider: 07/14/23 10:45 Description of Symptoms (Recalled from Triage Doc. by RN): PATIENT C/O POISON AMELIE RASH AFTER EXPOSURE ON TUESDAY HEENT Symptoms (Recalled from RN notes): No Resp Symptoms (Recalled from RN notes): No Skin Symptoms (Recalled from RN notes): No MS Symptoms (Recalled from RN notes): No Functional Status (Recalled from RN notes): WNL History of Present Illness Provider Complaint: Patient states that he was clearing brush last weekend and was in poison [place] and poison [place] States that since then he started breaking out in rash all over his arms and starting on his neck and face states that he has to get steriods sometimes to clear it up Related Data Previous Rx's Medication Instructions Recorded prednisone 5 mg tablets in a dose See Rx Instructions PO .COMPLEX 07/14/23 pack #21 tabs Allergies Allergy/AdvReac Type Severity Reaction Status Date / Time No Known Allergies Allergy Verified 03/12/22 09:25 Worker's Comp Is this a Worker's Comp case?: No [facility] Disclaimer: The information contained in this section may have been updated after the patient was seen, as this information can be updated by other users. Medical History No significant past medical history Social History Smoking Status: Never smoker alcohol intake: never current occupational status: employed Travel in the last 8 weeks: None ROS Obtained: Yes All systems reviewed & no additional complaints except as documented and Yes Systems reviewed as appropriate & no additional complaints except as documented Constitutional Constitutional: Reports system reviewed and no additional complaints, except as documented and Reports as per HPI ENT Ears, Nose, Mouth, and Throat: Reports system reviewed and no additional complaints, except as documented and Reports as per HPI Cardiovascular Cardiovascular: Reports system reviewed and no additional complaints, except as documented and Reports as per HPI Respiratory Respiratory: Reports system reviewed and no additional complaints, except as documented and Reports as per HPI Gastrointestinal Gastrointestingal: Reports system reviewed and no additional complaints, except as documented and as per HPI Integumentary/Breasts Skin/Breast: Reports system reviewed and no additional complaints, except as documented, Reports as per HPI, Reports pruritus and Reports rash Physical Exam General General appearance: alert and in no apparent distress Respiratory Respiratory exam: Present normal lung sounds bilaterally; Absent respiratory distress or wheezes Cardiovascular Cardiovascular exam: Present regular rate, normal rhythm and normal heart sounds Abdominal Exam Abdominal exam: Present soft and normal bowel sounds; Absent distention or tenderness Neurological Exam Neurological exam: Present alert, orie
[2023-07-14 11:24] VITALS: BP 133/80; PULSE 84; RESP 18; TEMP 36.8; O2SAT 96
== END 2023-07-14 11:29 | disposition home or self-care (01) ==
PROVIDERS: Emergency Provider Nurse Practitioner
DX: L23.7 Allergic contact dermatitis due to plants, except food (principal); W57.XXXA Bitten or stung by nonvenomous insect and other nonvenomous arthropods, initial encounter
CPT/HCPCS: 96372; 99212; 99214; G0463

== ENCOUNTER 2024-05-07 11:10 | Emergency (ER) | payer BC, SELFPAY ==
[2024-05-07 11:25] VITALS: BP 130/76; PULSE 105; RESP 20; TEMP 36.7; O2SAT 97; BMI 42.7
--- NOTE | 2024-05-07 11:35 | EXP.UTC ---
Discharge Plan Disposition Patient Disposition: Home, Self-Care Condition: Good Prescriptions Prescriptions: New xibxcabodxxvriw-zptautgmj-SN [Bromfed DM] 2-30-10 mg/5 mL syrup 10 ml PO Q6H PRN (Reason: cough/sinus symptoms) Qty: 200 0RF azithromycin 250 mg tablet See Rx Instructions .ROUTE .COMPLEX Qty: 6 0RF Rx Instructions: For 250 mg dose pack: take 500 mg today (day 1), then 250 mg for 4 days (days 2-5) Referrals Follow up/Referrals: Xavier Larkin MD [Primary Care Provider] - See instructions Clinical Impressions Clinical Impression: URI (upper respiratory infection) Qualifiers: URI type: unspecified URI Qualified Code(s): J06.9 - Acute upper respiratory infection, unspecified Instructions Patient Instructions: DI for Acute Bronchitis Discharge ED Provider: Erika Bishop [facility] [place] HPI General Stated complaint: congestion, cough, fever, V/D, SOA Mode of Arrival: Ambulatory Source of Information: Patient Limitations: No Limitations Time Seen by Provider: 05/07/24 11:29 Description of Symptoms (Recalled from Triage Doc. by RN): PATIENT C/O COUGH, FEVER, BODY ACHES AND HEADACHE X 3 DAYS HEENT Symptoms (Recalled from RN notes): Yes Resp Symptoms (Recalled from RN notes): Yes Skin Symptoms (Recalled from RN notes): No MS Symptoms (Recalled from RN notes): No Functional Status (Recalled from RN notes): WNL History of Present Illness Provider Complaint: Pt reports that he started getting sick on Tuesday. He reports a cough with green sputum, runny nose with clear drainage, body aches, and headache. He denies taking anything for his symptoms. Related Data Previous Rx's Medication Instructions Recorded azithromycin 250 mg tablet See Rx Instructions PO .COMPLEX #6 05/07/24 tabs dnrhhonytjtoicf-mcywvxkfqjozvtr-DO 10 ml PO Q6H PRN cough/sinus 05/07/24 2 mg-30 mg-10 mg/5 mL oral syrup symptoms #200 mL (Bromfed DM) Allergies Allergy/AdvReac Type Severity Reaction Status Date / Time No Known Allergies Allergy Verified 03/12/22 09:25 Worker's Comp Is this a Worker's Comp case?: No [facility] Disclaimer: The information contained in this section may have been updated after the patient was seen, as this information can be updated by other users. Medical History No significant past medical history Social History Smoking Status: Never smoker alcohol intake: never current occupational status: employed Travel in the last 8 weeks: None ROS Obtained: Yes All systems reviewed & no additional complaints except as documented Constitutional Constitutional: Reports system reviewed and no additional complaints, except as documented, Reports body ache and Reports malaise Eyes Eyes: Reports system reviewed and no additional complaints, except as documented ENT Ears, Nose, Mouth, and Throat: Reports system reviewed and no additional complaints, except as documented, Reports nasal congestion, Reports nasal discharge and Reports post nasal drip Cardiovascular Cardiovascular: Reports system reviewed and no additional complaints, except as documented Respiratory Respiratory: Reports system reviewed and no additional complaints, except as documented, Reports change in phlegm color, Reports chest congestion, Reports cough and Reports cough with sputum production Gastrointestinal Gastrointestingal: Reports system reviewed and no additional complaints, except as documented Genitourinary Male Genitourinary: Reports system reviewed and no additional complaints, except as documented Musculoskeletal Musculoskeletal: Reports system reviewed and no additional complaints, except as documented Integumentary/Breasts Skin/Breast: Reports system reviewed and no additional complaints, except as documented Neurologic Neurologic: Reports system reviewed and no additional complaints, except as documented Endocrine Endocrine: Reports system reviewed and no additional complaints, except as documented Hematologic/Lymphatic Henatologic/Lymphatic: Reports system reviewed and no additional complaints, except as documented Allergic/Immunologic Allergic/Immunologic: Reports system reviewed and no additional complaints, except as documented Physical Exam General General appearance: alert Comment: ill appearing Head Head exam: atraumatic and normocephalic Eye Eye exam: Present normal appearance Expanded ENT Exam External ear exam: Present normal external inspection Nasal speculum exam: Bilateral: other (clear drainage) Mouth exam: Present normal external inspection Teeth exam: Present normal inspection Throat exam: Present tonsillar erythema Neck Neck exam: Present normal inspection; Absent lymphadenopathy Chest Chest inspection: Present normal inspection and symmetric chest wall rise Respiratory Respiratory exam: Present other Expanded Respiratory Exam Location: Left: rales, Upper: rales and Lower: rales Cardiovascular Cardiovascular exam: Present regular rate, normal rhythm and normal heart sounds Abdominal Exam Abdominal exam: Present soft and normal bowel sounds Extremities Exam Extremities exam: Present normal inspection Back Exam Back exam: Present normal inspection Neurological Exam Neurological exam: Present alert and oriented X3 Psychiatric Psychiatric exam: Present normal affect and normal mood Skin Skin exam: Present warm, dry and intact Lymphatic Lymphatic Findings: no adenopathy Medical Decision Making Kush Inquiry Pt receiving controlled substance: No Kush was queried for this patient: No Vital Signs: 05/07/24 11:25 Temperature 98.0 F Temperature Source Oral Pulse Rate [Left Brachial] 105 H Respiratory Rate 20 Blood Pressure [Left Arm] 130/76 Blood Pressure Mean [Left Arm] 94 Blood Pressure Source [Left Arm] Automatic Cuff Blood Pressure Position [Left Arm] Sitting 02 Sat by Pulse Oximetry 97 Oxygen Delivery Method Room Air
[2024-05-07 11:49] LABS: UTC Influenza A Antigen Negative (Negative); UTC Influenza B Antigen Negative (Negative); UTC Strep Screen (Rapid) Negative (Negative)
[2024-05-07 12:02] VITALS: BP 130/76; PULSE 105; RESP 20; TEMP 36.7; O2SAT 97
== END 2024-05-07 12:05 | disposition home or self-care (01) ==
PROVIDERS: Emergency Provider Nurse Practitioner Family; PCP Family Medicine
DX: R05.9 Cough, unspecified (principal); R51.9 Headache, unspecified; J06.9 Acute upper respiratory infection, unspecified
CPT/HCPCS: 87804; 87880; 99212; 99214; C1751; G0463

== ENCOUNTER 2024-08-13 13:06 | Emergency (ER) | payer BC, SELFPAY ==
[2024-08-13 13:34] VITALS: BP 138/73; PULSE 68; RESP 20; TEMP 36.8; O2SAT 99; BMI 40.6
[2024-08-13 13:47] LABS: UTC Strep Screen (Rapid) Negative (Negative)
--- NOTE | 2024-08-13 13:57 | ED_ITS ---
Discharge Plan Disposition Patient Disposition: Home, Self-Care Condition: Good Prescriptions Prescriptions: No Action jwqllripfvlhrkb-tdqowzxbm-BF [Bromfed DM] 2-30-10 mg/5 mL syrup 10 ml PO Q6H PRN (Reason: cough/sinus symptoms) Qty: 200 0RF azithromycin 250 mg tablet See Rx Instructions .ROUTE .COMPLEX Qty: 6 0RF Rx Instructions: For 250 mg dose pack: take 500 mg today (day 1), then 250 mg for 4 days (days 2-5) Referrals Follow up/Referrals: Xavier Larkin MD [Primary Care Provider] - See instructions Activity Restrictions/Add. Instructions Additional Instructions/Restrictions: Drink extra fluids with and between meals. If you have difficulty drinking, try very small amounts of water or suck on ice chips. ? Avoid fruit juices, as these do not replace minerals and can actually increase diarrhea. ? Children and adults can use sports drinks to replenish electrolytes. Younger children and infants should use products formulated for children, like oral rehydration solutions. ? Eat food in small amounts and let your stomach recover. ? Get lots of rest. You may feel tired or weak. ? No greasy or fried foods for the next 24-48 hours BRAT diet Bananas Rice Apples and Star ? Make sure to drink plenty of liquids ? Return if needed ? Straight to ER if any life threatening symptoms ? Follow up with family doctor in the next 48-72 hours if no improvement or any worsening of symptoms Clinical Impressions Clinical Impression: Viral syndrome Stand Alone Forms Stand Alone Forms: Work/School Release Instructions Patient Instructions: Sore Throat, Diarrhea Print Language Print Language: [place] Discharge ED Provider: Perla Kellogg [facility] [place] General Stated complaint: nausea, diarrhea, abd pain, headache Mode of Arrival: Ambulatory Source of Information: Patient Time Seen by Provider: 08/13/24 13:57 Description of Symptoms (Recalled from Triage Doc. by RN): DIARRHEA, NAUSEA, FATIGUE, THROAT SORE HEENT Symptoms (Recalled from RN notes): Yes Resp Symptoms (Recalled from RN notes): No Skin Symptoms (Recalled from RN notes): No MS Symptoms (Recalled from RN notes): No Functional Status (Recalled from RN notes): WNL History of Present Illness Provider Complaint: Patient states that he was recently around his mother that had a stomach bug States that now he has been having diarrhea, sore scratchy throat, and feeling fatigue so he came in to get checked after he woke up this morning with sore throat Related Data Previous Rx's ?Medication ?Instructions ?Recorded azithromycin 250 mg tablet See Rx Instructions PO .COMPLEX #6 05/07/24 tabs ejagprthsobqzue-hsyejdzandfypwa-AO 10 ml PO Q6H PRN cough/sinus 05/07/24 2 mg-30 mg-10 mg/5 mL oral syrup symptoms #200 mL (Bromfed DM) Allergies Allergy/AdvReac Type Severity Reaction Status Date / Time No Known Allergies Allergy Verified 03/12/22 09:25 Worker's Comp Is this a Worker's Comp case?: No [facility] Disclaimer: The information contained in this section may have been updated after the patient was seen, as this information can be updated by other users. Medical History No significant past medical history Social History Smoking Status: Never smoker alcohol intake: never current occupational status: employed Travel in the last 8 weeks: None ROS Obtained: Yes All systems reviewed & no additional complaints except as documented and Yes Systems reviewed as appropriate & no additional complaints except as documented Constitutional Constitutional: Reports system reviewed and no additional complaints, except as documented, Reports as per HPI and Reports fatigue ENT Ears, Nose, Mouth, and Throat: Reports system reviewed and no additional complaints, except as documented, Reports as per HPI, Reports nasal congestion and Reports sore throat Cardiovascular Cardiovascular: Reports system reviewed and no additional complaints, except as documented and Reports as per HPI Respiratory Respiratory: Reports system reviewed and no additional complaints, except as documented and Reports as per HPI Gastrointestinal Gastrointestingal: Reports system reviewed and no additional complaints, except as documented, as per HPI, diarrhea and nausea; Denies abdominal pain Endocrine Endocrine: Reports fatigue Physical Exam General General appearance: alert and in no apparent distress ENT ENT exam: Present mucous membranes moist Expanded ENT Exam Nose exam: Absent sinus tenderness Throat exam: Present normal inspection Respiratory Respiratory exam: Present normal lung sounds bilaterally; Absent respiratory distress or wheezes Cardiovascular Cardiovascular exam: Present regular rate, normal rhythm and normal heart sounds Abdominal Exam Abdominal exam: Present soft and normal bowel sounds; Absent distention or tenderness Neurological Exam Neurological exam: Present alert, oriented X3 and normal gait Medical Decision Making Medical Records Screening: Per USPSTF and CDC recommendations, given the prevalence of disease in our region, it is our hospital?s policy to screen for HIV and viral Hepatitis for all patients aged 18 and over and those with ongoing risk factors. Kush Inquiry Pt receiving controlled substance: No Kush was queried for this patient: No Vital Signs: 08/13/24 13:34 Temperature 98.2 F Temperature Source Oral Pulse Rate [Left Brachial] 68 Respiratory Rate 20 Blood Pressure [Left Arm] 138/73 Blood Pressure Mean [Left Arm] 94 02 Sat by Pulse Oximetry 99 Lab Data Lab results reviewed: Yes I reviewed the patient's lab results. Lab Results 08/13/24 13:47: Strep Scn Rapid Clinic Negative Orders (Tests/Meds): ORDERS Category Date Time Status Strep Screen Confirmation Stat Micro 08/13/24 13:47 Received
[2024-08-13 14:17] VITALS: BP 138/73; PULSE 60; RESP 20; TEMP 36.8
== END 2024-08-13 14:18 | disposition home or self-care (01) ==
PROVIDERS: Emergency Provider Nurse Practitioner; PCP Family Medicine
DX: R19.7 Diarrhea, unspecified (principal); R07.0 Pain in throat; R53.83 Other fatigue
CPT/HCPCS: 87880; 99212; 99213; G0463